=== PATIENT | female | born 1965 | race Caucasian/White ===

== ENCOUNTER 2022-12-13 08:16 | Emergency (ER) | payer OTHER ==
[2022-12-13] MEDS ORDERED: Ketorolac 30 MG/ML SDV IVPUSH ONE (08:34)
[2022-12-13] MEDS ORDERED: Ondansetron 4 MG/2 ML SDV IVPUSH ONE (08:36)
[2022-12-13] MEDS ORDERED: diphenhydrAMINE 50 MG/ML SDV IVPUSH ONE (08:36)
[2022-12-13] MEDS ORDERED: Sodium Chloride 0.9% 1,000 ML IV ONE (08:37)
[2022-12-13 09:26] LABS: CORONAVIRUS COVID-19 NAA NEGATIVE (NEGATIVE)
== END 2022-12-13 09:57 | disposition home or self-care (01) ==
LOC: CC.ED 08:16
DX: L25.9 Unspecified contact dermatitis, unspecified cause (principal); R51.9 Headache, unspecified; R11.2 Nausea with vomiting, unspecified; Z88.6 Allergy status to analgesic agent; Z88.8 Allergy status to other drugs, medicaments and biological substances; Z88.5 Allergy status to narcotic agent; Z88.0 Allergy status to penicillin; Z20.822 Contact with and (suspected) exposure to COVID-19
CPT/HCPCS: 0240U; 36415; 80053; 83735; 85025; 96361; 96374; 96375; 99284; 99284-25; J1200; J1885; J2405; J7030